=== PATIENT | female | born 1935 | race Caucasian/White ===

== ENCOUNTER 2017-06-21 08:18 | Inpatient (IN) | payer MEDICARE, OTHER ==
[~2017-06-21] VITALS: Ht 160 cm; Wt 63.0 kg
[~2017-06-21 08:18] MED LIST: BACTRIM DS TAB1 EACH PO; CALCIUM 600 +1 EAC1 PO; CARAFATE 1 GM TA1 G1 PO; CARAFATE1 GM/10 ML PO; CIPROFLOXACIN500 M1; COZAAR 25 MG TA25 M1 PO; COZAAR 50 MG TA50 M2 PO; FLAGYL500 MG PO; HYDROCODON-ACE1 EAC8 PO; HYDROCODON-ACE1 EACH PO; IMITREX; IMITREX 25 MG T25 M1 PO; INDERAL LA120 M1 PO; INDERAL LA120 MG; INDERAL LA160 M1 PO; LISINOPRIL5 MG PO; MULTIVITAMINS1 EAC7 PO; NEXIUM; NEXIUM20 MG PO; NORCO 5-325 TA1 EAC1 PO; NORCO 5-325 TA1 EACH PO; NORVASC5 MG PO; OMEPRAZOLE 20 M20 M1 PO; PROPRANOLOL 1010 MG PO; TOPROL XL25 MG PO; TRAMADOL 50 MG50 MG PO; VALIUM5 MG PO; VERAPAMIL E.R240 M1 PO; VERAPAMIL ER120 MG; VERAPAMIL ER240 M1 PO; VITAMIN D1000 UNI1 PO; VITAMIN D400 UNI1; VITAMIN E400 UNIT PO; VOLTAREN GEL 1100 G2 TOP; ZOFRAN4 MG PO
[2017-06-21 08:26] VITALS: BP 136/77
[2017-06-21 08:53] LABS: HEMATOCRIT 42.7 % (37.0-47.0); HEMOGLOBIN 14.7 gm/dL (12.0-15.0); MCH 31.4 pg (26.0-34.0); MCHC 34.5 g/dL (28.0-37.0); MPV 9.3 fl. (7.2-11.1); NUCLEATED RBCS 0 /100WBC; PLATELET COUNT* 145 thou/uL (150-400); RBC 4.69 mil/uL (4.20-5.00); RDW-CV 13.2 % (10.5-14.5); WBC 14.6 thou/uL (4.0-11.0)
[2017-06-21 08:56] LABS: ANION GAP 9 mmol/L (7-16); BUN 17 mg/dL (7-18); CALCIUM 8.2 mg/dL (8.5-10.1); CHLORIDE 95 mmol/L (98-107); CO2 27 mmol/L (21-32); GLUCOSE 109 mg/dL (70-99); POTASSIUM 3.3 mmol/L (3.5-5.1); SODIUM 131 mmol/L (136-145)
[2017-06-21 08:56] LABS: INFLUENZA A ANTIGEN None Detected (None Detect); INFLUENZA B ANTIGEN None Detected (None Detect)
[2017-06-21 09:02] LABS: ALBUMIN 2.9 g/dL (3.4-5.0); ALKALINE PHOSPHATASE 65 U/L (46-116); APTT 28.9 Seconds (25.0-31.3); INR 1.3; LIPASE 127 U/L (73-393); PROTIME 12.2 Seconds (9.20-11.50); SGOT 33 U/L (15-37); SGPT 44 U/L (30-65); TOTAL PROTEIN 7.3 g/dL (6.4-8.2); TROPONIN-I LEVEL <0.06 ng/mL (<0.06)
[2017-06-21 09:13] LABS: ABSOLUTE LYMPHOCYTES 0.7 thou/uL (0.8-5.3); ABSOLUTE MONOCYTES 2.2 thou/uL (0.0-1.2); ABSOLUTE NEUTROPHILS 11.7 thou/uL (1.6-8.1); PLATELET ESTIMATE DECREASED
[2017-06-21 09:18] LABS: URINE BILIRUBIN NEGATIVE (Negative); URINE BLOOD TRACE (Negative); URINE CLARITY SL CLOUDY; URINE COLOR YELLOW; URINE GLUCOSE-RANDOM NEGATIVE (Negative); URINE KETONES 2+ (Negative); URINE LEUKOCYTES-REFLEX 1+ (Negative); URINE PROTEIN 1+ (Negative)
[2017-06-21 09:19] LABS: URINE NITRITE-REFLEX POSITIVE (Negative)
[2017-06-21 09:24] LABS: BACTERIA-REFLEX >30 Many /HPF (None Seen); SQUAMOUS 4-10 Moderate /LPF (0-3)
[2017-06-21 09:25] LABS: CASTS None Seen /LPF (None Seen); CRYSTALS None Seen /LPF (None Seen); URINE RBC 0-2 Rare /HPF (0-2)
--- NOTE | 2017-06-21 09:38 | NUR ---
LAB RETRIEVING BLOOD CULTURES BEFORE ANTIBIOTICS ARE STARTED.
--- NOTE | 2017-06-21 11:15 | NUR ---
CALLED PHARMACY AT [facility] IN [place] TO RETRIEVE UPDATED MEDICATION LIST FOR PATIENT DUE TO PATIENT NOT KNOWING AN UPDATED LIST.
[2017-06-21 11:35] VITALS: BP 123/72
[2017-06-21 12:00] VITALS: BP 136/76
[2017-06-21 16:50] VITALS: BP 120/66
--- NOTE | 2017-06-21 16:50 | NUR ---
PATIENT ADM TO FLOOR, ON UNIT AT 1150, ORIENTED TO ROOM, BELONGIGNS WITHIN REACH, CALL LIGHT AT BEDSIDE, INSTRUCTED TO CALL. PATIENT A&OX4, DROWSY, LETHARGIC. ON ROOM AIR, FINGERS HAVE POOR CIRCULATION USING FEET FOR SPO2 READING. UP WITH STAND BY ASSISTX1, STEADY SLOW GAIT. IV RIGHT AC FLUIDS INFUSSING. NO C/O PAIN. NO OTHER CONCERNS AT THIS TIME. APPROPRAITE AND COOPORATIVE WITH CARE.
[2017-06-21 17:10] LABS: CALCIUM 8.2 mg/dL (8.5-10.1); CREATININE 0.9 mg/dL (0.6-1.3); MAGNESIUM 1.7 mg/dL (1.8-2.4); POTASSIUM 3.3 mmol/L (3.5-5.1)
[2017-06-21 23:31] VITALS: BP 117/66
--- NOTE | 2017-06-22 05:09 | NUR ---
PT UNCOMFORTABLE WITH HEADACHE AND SWEATING AT START OF SHIFT, RESTLESS. +BLOOD CULTURE RESULT REPORTED TO DR MOLINA, NO NEW ORDERS. HYDROCODONE GIVEN WITH GOOD RESULT AND PT ABLE TO SLEEP FAIRLY WELL AFTER THAT. RAC SL, POSITIONAL, NS INFUSING PER PUMP. PO MAG AND K GIVEN AT HS-AM LABS DRAWN.L LIMB ALERT. DENIES N/V. INCONTINENT URINE, BRIEF ON, REGINALD CARE GIVEN. BED ALARM ON FOR SAFETY.ABLE TO USE CALL LITE AND MAKE NEEDS KNOWN.
[2017-06-22 06:08] LABS: HEMATOCRIT 40.5 % (37.0-47.0); HEMOGLOBIN 13.5 gm/dL (12.0-15.0); MCH 31.2 pg (26.0-34.0); MCHC 33.3 g/dL (28.0-37.0); MCV 93.8 fL (80.0-100.0); MPV 9.9 fl. (7.2-11.1); RBC 4.32 mil/uL (4.20-5.00); RDW-CV 13.3 % (10.5-14.5); WBC 11.3 thou/uL (4.0-11.0)
[2017-06-22 06:27] LABS: CALCIUM 8.1 mg/dL (8.5-10.1); MAGNESIUM 1.8 mg/dL (1.8-2.4); POTASSIUM 4.1 mmol/L (3.5-5.1)
[2017-06-22 08:00] VITALS: BP 125/64
--- NOTE | 2017-06-22 10:58 | NUR ---
CM SPOKE TO THE PATIENT TO DISCUSS HOME SITUATION, DISCHARGE PLANNING, AND TO INFORM OF THE ROLE OF CM. PATIENT ALERT, ORIENTED, AND INDEPENDENT WITH ADL'S. PATIENT ABLE TO PERFORM HOME SERVICE DIRECTOR AND DRIVES. PATIENT RESIDES AT HOME WITH . PATIENT OWNS 0 DME. PATIENT HAS NO HX OF HH OR SNF, AND PLANS TO RETURN HOME AT D/C. CM WILL REMAIN AVAILABLE TO ASSIST AND FOLLOW NEEDED.
[2017-06-22 16:00] VITALS: BP 131/48
--- NOTE | 2017-06-22 18:02 | EKG ---
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 : 1935 Requested By: Kei Agudelo Order Number: [id number] MD: Desmond Zaldivar Measurements Intervals [place] Rate: 67 P: 25 [place]: 186 QRS: -47 QRSD: 98 T: 65 QT: 415 QTc: 438 Interpretive Statements Sinus rhythm Atrial premature complexes LAD, consider left anterior fascicular block Compared to ECG 08/22/2014 09:31:41 Atrial premature complex(es) now present Sinus bradycardia no longer present T-wave abnormality no longer present Electronically Signed On 06-22-2017 18:01:48 CDT by Desmond Zaldivar [email or web address] <ELECTRONICALLY SIGNED> By: Desmond Zaldivar MD, [facility] 06/22/17 1801 0843 0843 Desmond Zaldivar MD, [facility] /EPI
--- NOTE | 2017-06-22 18:30 | NUR ---
PT RESTING IN BED THROUGHOUT SHIFT. UP TO BR WITH STEADY GAIT AND SB ASSIST. INCONTINENT OF URINE. PT REPORTS OCASSIONAL FLANK PAIN CONTROLLED WITH MEDS. IVF INFUSING. TOLERATING PO WELL
[2017-06-22 23:52] VITALS: BP 130/70
[2017-06-23 05:01] LABS: HEMATOCRIT 41.9 % (37.0-47.0); HEMOGLOBIN 13.7 gm/dL (12.0-15.0); MCH 30.9 pg (26.0-34.0); MCHC 32.7 g/dL (28.0-37.0); MCV 94.5 fL (80.0-100.0); MPV 9.8 fl. (7.2-11.1); RBC 4.43 mil/uL (4.20-5.00); RDW-CV 13.2 % (10.5-14.5); WBC 9.9 thou/uL (4.0-11.0)
[2017-06-23 05:31] LABS: CREATININE 0.9 mg/dL (0.6-1.3); MAGNESIUM 1.8 mg/dL (1.8-2.4); POTASSIUM 3.7 mmol/L (3.5-5.1)
--- NOTE | 2017-06-23 06:22 | NUR ---
PT STATES SHE FEELS BETTER. SLEPT WELL OVERNIGHT. UP WITH SBA TO AMBULATE TO BR TO VOID, INCONTINENT URINE IN BRIEF ALSO. RAC IVF INFUSING PER PUMP. HYDROCODONE GIVEN AT HS FOR CO BACK PAIN WITH GOOD RESULT. AM LABS DRAWN. BED ALARM ON FOR SAFETY. ZOFRAN GIVEN FOR CO NAUSEA THIS MORNING WITHOUT EMESIS. ABLE TO USE CALL LITE AND MAKE NEEDS KNOWN.
[2017-06-23 08:15] VITALS: BP 141/41
[2017-06-23 16:26] VITALS: BP 143/67
--- NOTE | 2017-06-23 19:46 | NUR ---
PATIENT A/O X 4 THIS SHIFT. PATIENT MEDICATED FOR BACK PAIN AND HEADACHE WITH RELIEF. IV FLUIDS AND ANTIBIOTICS INFUSED ORDERED. UP WITH ASSIST TO BATHROOM WITH STAND BY ASSIST. URINE CULTURE RESULTS NOTED, SHOWING E COLI. TOLERATING DIET. PATIENT HOPEFUL TO BE DISCHARGED SOON. HOURLY ROUNDING COMPLETED. CALL LIGHT WITHIN REACH. WILL CONTINUE WITH PLAN OF CARE.
[2017-06-23 22:22] VITALS: BP 156/83
[2017-06-24 05:02] LABS: HEMATOCRIT 38.2 % (37.0-47.0); HEMOGLOBIN 13.4 gm/dL (12.0-15.0); MCH 31.4 pg (26.0-34.0); MCHC 34.9 g/dL (28.0-37.0); MPV 9.7 fl. (7.2-11.1); RBC 4.25 mil/uL (4.20-5.00); RDW-CV 13.2 % (10.5-14.5); WBC 7.7 thou/uL (4.0-11.0)
[2017-06-24 05:35] LABS: ALBUMIN 2.3 g/dL (3.4-5.0); CREATININE 0.8 mg/dL (0.6-1.3); TOTAL BILIRUBIN 0.7 mg/dL (<0.1-1.0); TOTAL PROTEIN 6.6 g/dL (6.4-8.2)
[2017-06-24 05:44] LABS: POTASSIUM 3.3 mmol/L (3.5-5.1)
[2017-06-24 08:05] VITALS: BP 147/69
--- NOTE | 2017-06-24 10:41 | CON ---
[address] [address] CONSULTATION Name: TAVIA AMADOR Room: [address] IN [facility]#: [id number] Admission: 06/21/17 Attend Phys: Aroldo Painter, Discharge: Date of : 37 Report #: [id number] THIS REPORT FOR: //name// CC: Aroldo Luque DATE OF SERVICE: 06/22/2017 REQUESTING PHYSICIAN: Aroldo Painter MD REASON FOR CONSULTATION: Acute pyelonephritis and question regarding possibility of renal infarction. HISTORY OF PRESENT ILLNESS: The patient is a very pleasant 81-year-old white female admitted to the hospital with the complaints of nausea, vomiting, not feeling well and having some by left-sided flank pain. She did have also some diarrhea when she came in, her urine was positive for ketones, nitrites, leukocyte esterase, many white blood cells, bacteria. She had a urine culture and blood culture done, reports are pending. Her white count and blood was 14.6 thousand with 80% segs in differential of white count. Her serum creatinine was normal at 1.0. Serum sodium was 131, today serum sodium 136, creatinine is still 1.0. She was checked for influenza and that was negative. PAST MEDICAL HISTORY: Significant for hypertension, history of metatarsal fracture, history of fracture of the lateral malleolus. MEDICATIONS: Prior to admission reviewed. She was on losartan, amlodipine, propranolol, tramadol and Nexium. FAMILY HISTORY: Noncontributory to this 81-year-old lady. SOCIAL HISTORY: There is no tobacco or alcohol abuse. She never smoked. PAST SURGICAL HISTORY: Include left mastectomy in 2001 because of breast cancer, placement of pacemaker for urinary incontinence and history of tonsillectomy and appendectomy. REVIEW OF SYSTEMS: Positive for not feeling well, having some fever, chills, having some nausea, and left-sided flank pain. Denies changes in visual or hearing acuity. PHYSICAL EXAMINATION: GENERAL: Awake, alert, oriented, no acute distress. VITAL SIGNS: Blood pressure 125/64, heart rate 77, afebrile. HEENT: [place] [address] CONSULTATION Name: TAVIA AMADOR Deirdre Room: [address]#: [id number] Admission: 06/21/17 Attend Phys: Aroldo Painter, Discharge: Date of : 37 Report #: [id number] NECK: Supple. LUNGS: Decreased air movement. CARDIOVASCULAR: Regular rate. ABDOMEN: Soft. EXTREMITIES: No edema. LABORATORY DATA: She had abdominal and pelvic CT scan done with contrast that revealed some relatively low density involving the lateral aspect of the mid superior pole of the right kidney with perinephric fat stranding suggesting edema/inflammation most likely represents a bacterial nephritis. There was a question regarding possibility of some infarction of the kidneys, but it is less likely. ASSESSMENT: An 81-year-old female admitted with symptoms and findings suggestive of pyelonephritis. At this moment renal infection is less likely. I would not recommend any anticoagulation or any further workup for that. I will continue with antibiotics and fluids for now and assess her condition on daily basis. Continue medications for her blood pressure. The patient had a contrast, so we have to be monitoring her renal function very closely. Thank you very much for asking my opinion. <ELECTRONICALLY SIGNED> By: Isidro Lott MD 06/24/17 1041 1043 [id number] Lott MD /[facility]
[2017-06-24 16:51] VITALS: BP 131/83
--- NOTE | 2017-06-24 17:30 | NUR ---
PT C/O ALL OVER BODY PAIN, GIVEN PAIN MED ORDERED, RELIEF REPORTED ON REASSESSMENT. PT ENCOURAGED TO GET OOB TO CHAIR AND PT REFUSED ON SEVERAL ATTEMPTS. PT UP TO BATHROOM WITH SBA. PT ABLE TO MAKE NEEDS KNOWN, CALL LIGHT IN REACH
[2017-06-24 21:00] VITALS: BP 146/76
--- NOTE | 2017-06-25 07:28 | NUR ---
PT SLEPT MOST OF SHIFT. ASSESSMENT DOCUMENTED. MEDS GIVEN PER E-MAR. IV PATENT. PT REPOSITIONED SELF IN BED. NO CONCERNS AT THIS TIME, WILL CONTINUE WITH PLAN OF CARE.
[2017-06-25 08:25] VITALS: BP 151/78
--- NOTE | 2017-06-25 11:11 | NUR ---
PT'S MEDICAL CHARGE REVIEWED AND STATUS DISCUSSED W/ NSG. PT'S SON PRESENT IN ROOM. PT DEMO INDEP BED MOB, INDEP TRANSFERS, INDEP GAIT W/O DME SUPPORT. PT ABLE TO ASCEND/DESCEND 3 STEPS W/ TWO RAILS W/ MOD INDEP ( HOME HAS 3 KEON W/ 2 RAILS). PT INDICATES ACCESS TO CANES AND WALKERS IN HOME. SON INDICATES HE WILL BE IN THE HOME THIS DATE AND HAS SISTER ARRIVING TO STAY W/ PT NEXT WEEK. RECOMMENDED PT USE DME SUPPORT UPON RETURN TO HOME DUE TO MILD GAIT DEVIATION FROM GAIT PATH W/O DME SUPPORT. NO FURTHER ACUTE PT SERVICES ARE INDICATED.
--- NOTE | 2017-06-25 11:36 | NUR ---
ATTEMPT MADE TO SEE PATIENT. PT STATING THAT SHE IS FEELING FINE AND IS DISCHARGING AT 1330. PT STATING NO NEED FOR OCCUPATIONAL THERAPY. WILL D/C FROM OT [facility].
[2017-06-25 12:08] VITALS: BP 151/78
[2017-06-25] MEDS ORDERED: CIPRO500 M1 PO (12:14)
--- NOTE | 2017-06-25 13:45 | NUR ---
PT DC'D HOME WITH ALL BELONGINGS. IV REMOVED INTACT BEFORE DISMISSAL. PT ACKNOWLEDGED DISCHARGE INSTRUCTIONS AND SENT WITH RX.
== END 2017-06-25 13:15 | disposition home or self-care (01) | DRG 871 ==
LOC: M.ERS 08:18 → M.3W 10:46 → M.TBA-ER 10:46 → M.3W 11:46
PROVIDERS: Family Medicine; Internal Medicine; Internal Medicine Nephrology; ADMIT Family Medicine
DX: A41.51 Sepsis due to Escherichia coli [E. coli] (principal); G92 Toxic encephalopathy; N10 Acute pyelonephritis; N17.9 Acute kidney failure, unspecified; E87.6 Hypokalemia; E86.0 Dehydration; K21.9 Gastro-esophageal reflux disease without esophagitis; I10 Essential (primary) hypertension; Z90.12 Acquired absence of left breast and nipple; Z95.0 Presence of cardiac pacemaker; Z90.710 Acquired absence of both cervix and uterus; Z90.49 Acquired absence of other specified parts of digestive tract; Z88.8 Allergy status to other drugs, medicaments and biological substances; Z87.81 Personal history of (healed) traumatic fracture; Z85.3 Personal history of malignant neoplasm of breast; Z79.899 Other long term (current) drug therapy

== ENCOUNTER 2017-07-22 19:29 | Emergency (ER) | payer MEDICARE, OTHER ==
[~2017-07-22] VITALS: Ht 157.5 cm; Wt 63.5 kg
[~2017-07-22 19:29] MED LIST changes: +CIPRO500 M1 PO
[2017-07-22] MEDS ORDERED: HYDROCODONE-AP1 EAC6 PO (20:53)
[2017-07-22 21:04] VITALS: BP 145/74
== END 2017-07-22 21:06 | disposition home or self-care (01) ==
LOC: M.ERS 19:29
DX: S29.8XXA Other specified injuries of thorax, initial encounter (principal); K21.9 Gastro-esophageal reflux disease without esophagitis; I10 Essential (primary) hypertension; Z85.3 Personal history of malignant neoplasm of breast; Z90.710 Acquired absence of both cervix and uterus; Z90.49 Acquired absence of other specified parts of digestive tract; Z90.89 Acquired absence of other organs; Z88.8 Allergy status to other drugs, medicaments and biological substances; Z88.1 Allergy status to other antibiotic agents; W06.XXXA Fall from bed, initial encounter; Y93.89 Activity, other specified; Y92.89 Other specified places as the place of occurrence of the external cause; Y99.8 Other external cause status

== ENCOUNTER 2017-09-16 15:40 | Emergency (ER) | payer MEDICARE, OTHER ==
[~2017-09-16] VITALS: Ht 157.5 cm; Wt 61.2 kg
[~2017-09-16 15:40] MED LIST changes: +HYDROCODONE-AP1 EAC6 PO
[2017-09-16] MEDS ORDERED: NITROFURANTOIN100 MG PO (15:55)
[2017-09-16 16:11] VITALS: BP 175/91
--- NOTE | 2017-09-17 11:41 | EKG ---
[place] [address] ELECTROCARDIOGRAM REPORT Name: TAVIA AMADOR Room: [facility]#: [id number] Admission: 09/16/17 Attend Phys: Discharge: 09/16/17 Date of : 37 Report #: [id number] THIS REPORT FOR: //name// [facility] ED Test Date: 2017-09-16 Test Time: 15:48:02 Pat Name: TAVIA AMADOR Department: Room: Gender: F Part Time: MER : 1935 Requested By: Kei Agudelo Order Number: [id number] MD: Kentrell Marques Measurements Intervals [place] Rate: 60 P: 33 SD: 217 QRS: -42 QRSD: 98 T: 55 QT: 454 QTc: 454 Interpretive Statements Sinus rhythm Borderline prolonged SD interval Left axis deviation RSR' in V1 or V2, probably normal variant Compared to ECG 06/21/2017 08:43:11 Left-axis deviation now present RSR' in V1 or V2 now present Atrial premature complex(es) no longer present Electronically Signed On 09-17-2017 11:41:02 CDT by Kentrell Marques [email or web address] <ELECTRONICALLY SIGNED> By: Kentrell Marques MD, [facility] 09/17/17 1141 1548 1548 Kentrell Marques MD, FAC /EPI
== END 2017-09-16 16:11 | disposition home or self-care (01) ==
LOC: M.ERS 15:40
DX: I10 Essential (primary) hypertension (principal); K21.9 Gastro-esophageal reflux disease without esophagitis; Z90.710 Acquired absence of both cervix and uterus; Z90.49 Acquired absence of other specified parts of digestive tract; Z85.3 Personal history of malignant neoplasm of breast; Z88.8 Allergy status to other drugs, medicaments and biological substances

== ENCOUNTER 2017-10-11 16:30 | Inpatient (IN) | payer MEDICARE, OTHER ==
[~2017-10-11] VITALS: Ht 157.5 cm; Wt 58.1 kg
[~2017-10-11 16:30] MED LIST changes: +NITROFURANTOIN100 MG PO
[2017-10-11] MEDS ORDERED: TRAMADOL 50 MG50 MG PO (16:32)
[2017-10-11] MEDS ORDERED: IBUPROFEN 600600 M1 PO (16:32)
[2017-10-11] MEDS ORDERED: OMEPRAZOLE20 M1 PO (16:33)
[2017-10-11] MEDS ORDERED: PROPRANOLOL 1010 MG PO (16:33)
[2017-10-11] MEDS ORDERED: AMOXICILLIN 50500 MG PO (16:34)
[2017-10-11] MEDS ORDERED: COZAAR 25 MG TA25 M1 PO (16:34)
[2017-10-11 16:35] VITALS: BP 167/100
[2017-10-11 16:45] LABS: ABSOLUTE EOSINOPHILS 0.2 thou/uL (0.0-0.7); ABSOLUTE LYMPHOCYTES 1.7 thou/uL (0.8-5.3); ABSOLUTE NEUTROPHILS 4.8 thou/uL (1.6-8.1); BASOPHILS 0.5 %; EOSINOPHILS 3.1 %; HEMATOCRIT 42.2 % (37.0-47.0); LYMPHOCYTES 22.2 %; MCH 30.3 pg (26.0-34.0); MCHC 33.1 g/dL (28.0-37.0); MCV 91.3 fL (80.0-100.0); MONOCYTES 13.2 %; MPV 9.6 fl. (7.2-11.1); NUCLEATED RBCS 0 /100WBC; PLATELET COUNT* 149 thou/uL (150-400); RBC 4.63 mil/uL (4.20-5.00); RDW-CV 14.8 % (10.5-14.5); WBC 7.8 thou/uL (4.0-11.0)
[2017-10-11 16:56] LABS: ANION GAP 7 mmol/L (7-16); BUN 12 mg/dL (7-18); CALCIUM 8.8 mg/dL (8.5-10.1); CHLORIDE 101 mmol/L (98-107); CO2 29 mmol/L (21-32); CREATININE 0.9 mg/dL (0.6-1.3); GLUCOSE 106 mg/dL (70-99); POTASSIUM 3.5 mmol/L (3.5-5.1); SODIUM 137 mmol/L (136-145)
[2017-10-11 16:57] LABS: APTT 29.1 Seconds (25.0-31.3); INR 1.3; PROTIME 12.2 Seconds (9.20-11.50)
[2017-10-11 17:02] LABS: ALKALINE PHOSPHATASE 68 U/L (46-116); SGOT 37 U/L (15-37); SGPT 34 U/L (30-65); TOTAL BILIRUBIN 0.5 mg/dL (<0.1-1.0); TOTAL PROTEIN 7.7 g/dL (6.4-8.2); TROPONIN-I LEVEL <0.06 ng/mL (<0.06)
[2017-10-11 18:18] VITALS: BP 142/97
[2017-10-11 18:57] VITALS: BP 127/77
[2017-10-12] VITALS (12 sets, daily range): BP systolic 99–153; BP diastolic 78–99
[2017-10-12 05:00] LABS: URINE BLOOD 3+ (Negative); URINE CLARITY CLEAR; URINE COLOR DARK YELLOW; URINE GLUCOSE-RANDOM NEGATIVE (Negative); URINE KETONES TRACE (Negative); URINE LEUKOCYTES-REFLEX 1+ (Negative); URINE NITRITE-REFLEX NEGATIVE (Negative); URINE PROTEIN 1+ (Negative); URINE SPECIFIC GRAVITY >= 1.030 (1.005-1.030)
[2017-10-12 05:06] LABS: URINE BILIRUBIN 2+ (Negative)
[2017-10-12 05:11] LABS: ICTOTEST (BILI CONFIRMATORY) Negative (Negative)
[2017-10-12 05:18] LABS: BACTERIA-REFLEX >30 Many /HPF (None Seen); COARSE GRANULAR CASTS 0-3 Few /LPF (None Seen); CRYSTALS None Seen /LPF (None Seen); FINE GRANULAR CASTS 0-3 Few /LPF (None Seen); HYALINE CASTS 0-3 Few /LPF (None Seen); MUCUS 4-6 Moderate strn/LPF (None Seen); SQUAMOUS 0-3 Few /LPF (0-3); TRANSITIONAL EPITHEL CELL 0-3 Few /LPF (None Seen); URINE WBC-REFLEX >25 Many /HPF (0-5); WBC CLUMPS Few (None Seen)
[2017-10-12 07:12] LABS: HEMATOCRIT 48.7 % (37.0-47.0); HEMOGLOBIN 15.4 gm/dL (12.0-15.0); MCHC 31.7 g/dL (28.0-37.0); MCV 94.7 fL (80.0-100.0); MPV 10.3 fl. (7.2-11.1); RBC 5.14 mil/uL (4.20-5.00); RDW-CV 15.5 % (10.5-14.5); WBC 17.3 thou/uL (4.0-11.0)
[2017-10-12 07:47] LABS: CALCIUM 9.2 mg/dL (8.5-10.1); CREATININE 1.7 mg/dL (0.6-1.3)
[2017-10-12 08:49] LABS: BE -8.2 mmol/L (-2 to +3); pH 7.345 (7.340-7.450)
[2017-10-12 08:53] LABS: PO2 430.4 mmHg (75.0-100.0)
--- NOTE | 2017-10-12 09:50 | EKG ---
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 : 1935 Requested By: Kei Agudelo Order Number: [id number] MD: Ty Nj Measurements Intervals [place] Rate: 76 P: 61 VA: 188 QRS: 74 QRSD: 109 T: 15 QT: 451 QTc: 508 Interpretive Statements Sinus rhythm Supraventricular bigeminy RSR' in V1 or V2, right VCD or RVH Compared to ECG 09/16/2017 15:48:02 Atrial premature complex(es) now present Left-axis deviation no longer present Electronically Signed On 10-12-2017 9:50:14 CDT by Ty Nj [email or web address] <ELECTRONICALLY SIGNED> By: Ty Nj MD, FAC 10/12/17 0950 1645 1645 Ty Nj MD, FAC /EPI
--- NOTE | 2017-10-12 09:56 | EKG ---
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
[2017-10-12 14:21] LABS: HEMATOCRIT 50.5 % (37.0-47.0); HEMOGLOBIN 15.6 gm/dL (12.0-15.0); MCH 29.8 pg (26.0-34.0); MCHC 30.8 g/dL (28.0-37.0); MCV 96.9 fL (80.0-100.0); MPV 10.5 fl. (7.2-11.1); NUCLEATED RBCS 0 /100WBC; PLATELET COUNT* 147 thou/uL (150-400); RBC 5.22 mil/uL (4.20-5.00); RDW-CV 16.4 % (10.5-14.5); WBC 20.7 thou/uL (4.0-11.0)
[2017-10-12 14:38] LABS: ALBUMIN 2.4 g/dL (3.4-5.0); CALCIUM 8.4 mg/dL (8.5-10.1); CREATININE 1.8 mg/dL (0.6-1.3); TOTAL BILIRUBIN 1.2 mg/dL (<0.1-1.0); TOTAL PROTEIN 5.9 g/dL (6.4-8.2)
[2017-10-12 14:41] LABS: POTASSIUM 6.4 mmol/L (3.5-5.1)
[2017-10-12 14:55] LABS: ABSOLUTE LYMPHOCYTES 1.2 thou/uL (0.8-5.3); ABSOLUTE NEUTROPHILS 18.4 thou/uL (1.6-8.1)
[2017-10-12 14:57] LABS: ANISOCYTOSIS 3+; PLATELET ESTIMATE DECREASED; POIKILOCYTOSIS 3+
[2017-10-12 17:42] LABS: CALCIUM 8.3 mg/dL (8.5-10.1); CREATININE 1.8 mg/dL (0.6-1.3); POTASSIUM 5.4 mmol/L (3.5-5.1)
[2017-10-13] VITALS (16 sets, daily range): BP systolic 116–159; BP diastolic 66–102
[2017-10-13 07:04] LABS: ABSOLUTE LYMPHOCYTES 1.1 thou/uL (0.8-5.3); ABSOLUTE MONOCYTES 0.6 thou/uL (0.0-1.2); BASOPHILS 0.2 %; HEMATOCRIT 41.5 % (37.0-47.0); LYMPHOCYTES 5.7 %; MCH 29.9 pg (26.0-34.0); MCHC 32.8 g/dL (28.0-37.0); MONOCYTES 3.4 %; MPV 10.3 fl. (7.2-11.1); NUCLEATED RBCS 0 /100WBC; PLATELET COUNT* 80 thou/uL (150-400); POLYS 90.7 %; RBC 4.54 mil/uL (4.20-5.00); RDW-CV 15.1 % (10.5-14.5); WBC 18.8 thou/uL (4.0-11.0)
[2017-10-13 07:05] LABS: HEMOGLOBIN 13.6 gm/dL (12.0-15.0); MCV 91.3 fL (80.0-100.0)
[2017-10-13 07:11] LABS: CALCIUM 7.1 mg/dL (8.5-10.1); CREATININE 1.8 mg/dL (0.6-1.3)
[2017-10-13 07:15] LABS: BE -0.1 mmol/L (-2 to +3); HCO3 23.6 mmol/L (22.0-26.0); PCO2 35.4 mmHg (35.0-45.0); pH 7.441 (7.340-7.450)
[2017-10-13 07:16] LABS: POTASSIUM 3.1 mmol/L (3.5-5.1)
--- NOTE | 2017-10-13 08:15 | CON ---
[address] [address] CONSULTATION Name: TAVIA AMADOR Room: [address] IN [facility]#: [id number] Admission: 10/11/17 Attend Phys: Lauren Childers Discharge: Date of : 37 Report #: [id number] THIS REPORT FOR: //name// CC: Ines Luque DATE OF SERVICE: 10/11/2017 ATTENDING PHYSICIAN: Dr. Anderson. REASON FOR EVALUATION: Complicated urinary tract infection. HISTORY OF PRESENT ILLNESS: Chart reviewed, patient examined. This is an 81-year-old with fairly extensive medical history. It is not clear of the extent if there are any primary neurological issues, who apparently was startled, tripped and reported left hip pain, question of a syncopal episode as well. On evaluation, was found to have a partially impacted nondisplaced left subcapital femoral neck fracture, minimally displaced fracture involving the left superior pubic ramus. In addition to that, was found to have moderate to marked pyuria on screening urinalysis. There is a reported history of recent urinary tract infection, although there are no details. She is quite encephalopathic at this point. She apparently was transferred to the Intensive Care Unit, was felt to have altered mental status, some respiratory difficulty. Did require BiPAP for a period of time, although now she is on 4 liters. There is some concern that may have been secondary to adverse drug effects from narcotic analgesics. With chest x-ray and cardiomegaly is not particular evidence of acute issues, although has chronic scarring. Lactic acid did peak at 6.3; however, more recent repeat was 1.1. Empirically she was started on piperacillin and tazobactam. ALLERGIES: MEPERIDINE, CELECOXIB. CURRENT MEDICATIONS: Include enoxaparin, Zosyn, pantoprazole, hydralazine, acetaminophen, ondansetron. PAST MEDICAL HISTORY: Gastroesophageal reflux, hypertension, history of breast cancer in 2001 with left mastectomy, pacemaker, urinary incontinence, previous hysterectomy, appendectomy, tonsillectomy. SOCIAL HISTORY: Nonsmoker, no ethanol. FAMILY HISTORY: Noncontributory. REVIEW OF SYSTEMS: As above. PHYSICAL EXAMINATION: [place] [address] CONSULTATION Name: TAVIA AMADOR Room: [address]#: [id number] Admission: 10/11/17 Attend Phys: Lauren Childers Discharge: Date of : 37 Report #: [id number] GENERAL: She is moderately encephalopathic. She appears to be at least mildly uncomfortable with somewhat chronically ill, undernourished appearing. VITAL SIGNS: Temperature 97.7, pulse , respirations 21, blood pressure 153/99. SKIN: Warm, dry, no rashes. HEENT: Unremarkable. NECK: Supple. LUNGS: Diminished breath sounds, scattered crackles. HEART: Regular. I do not appreciate any murmur. ABDOMEN: Soft, nontender. EXTREMITIES: Limbs quite cool to the touch. There are some changes, possibly Raynaud's. GENITOURINARY AND RECTAL: Deferred. LABORATORY DATA: Lactic acid peaked at 6.3, repeat was 1.1. Most recent ABGs, pH 7.345, pCO2 of 30.0, pO2 of 430.4. FiO2 was 100%. Electrolytes: Sodium 138, potassium 5, chloride 104, bicarbonate is 18, anion gap of 16, BUN and creatinine 18 and 1.7. CBC: White count of 17.3, H and H 15.4 and 48.7, platelets of 160. Chest x-ray shows cardiomegaly, some chronic changes. Urinalysis greater than 25 white cells, greater than 30 bacteria. Liver functions unrevealing. Albumin 3, total protein 7.7. ASSESSMENT: Complicated urinary tract infection. This may well have preceded the hip fracture, sequence of events, does not sound like no significant fevers associated with it. Does have leukocytosis, which could be multifactorial. I do think it is reasonable to continue empiric therapy. Piperacillin and tazobactam is reasonable. It is not clear if treated as an outpatient, responded to the therapy. Urine and blood cultures are pending. We will wait on those results. Monitor expectantly for evidence of nosocomial related infectious complications. <ELECTRONICALLY SIGNED> By: Haile Mayo MD 10/13/17 0815 1134 1901Haile Mayo MD /nt
--- NOTE | 2017-10-13 08:52 | CON ---
[address] [address] CONSULTATION Name: TAVIA AMADOR Room: [address] IN .R.#: [id number] Admission: 10/11/17 Attend Phys: Lauren Childers Discharge: Date of : 37 Report #: [id number] THIS REPORT FOR: //name// CC: Holden Luque DATE OF SERVICE: 10/12/2017 PULMONARY CONSULTATION ATTENDING PHYSICIAN: Ines Anderson MD LOCATION: The patient is located in room ICU bed #6. INDICATION FOR CONSULTATION: Hypoxic respiratory failure, scleroderma and fibrosis. HISTORY OF PRESENT ILLNESS: The patient is an 81-year-old female, nonsmoker, who sustained a fall at home yesterday afternoon. She was standing on her left hip. She was in the kitchen and tripped over and she had a hip fracture and had pain there. She was seen on tele room and then she was transferred down to the ICU on BiPAP. She is lethargic. She was noted to be in urosepsis, was given some IV fluids. She did not have to be on pressors. She denies any fever, chills or sweats. No cough or sputum. She is chronically short of breath at home, but is not on any oxygen. She has had problems with uterine prolapse and had been working with the urologist on an outpatient. She cannot tell me what urologist she is working with. I was asked to see her and clear her for surgery. CURRENT MEDICAL PROBLEMS: Closed left hip fracture femoral head, dehydration, dizziness, previous left ankle fracture, metatarsal fracture. She has had pelvic fractures in the past, she has had symptomatic bradycardia, uncontrolled hypertension with Raynaud's phenomenon, possible early scleroderma. ALLERGIES: INCLUDE MEPERIDINE FROM DEMEROL AND CELECOXIB, CELEBREX GIVE HER RASH AND DEMEROL MADE HER AGITATED. OUTPATIENT MEDICATIONS: Included propranolol 120 mg daily, she is on nitrofurantoin 100 mg b.i.d., ibuprofen 600 mg every 6-8 hours, tramadol 50 mg q. 6 hours, omeprazole 20 mg b.i.d., amoxicillin 500 mg capsule every 12 hours, losartan 100 mg daily, Nexium 20 mg b.i.d., losartan 100 mg daily. Also has a history of breast CA in 2001 with a left mastectomy. She had a pacemaker for urinary incontinence implanted in right buttocks[place] [address] CONSULTATION Name: TAVIA AMADOR Room: [address] IN [facility]#: [id number] Admission: 10/11/17 Attend Phys: Lauren Childers Discharge: Date of : 37 Report #: [id number] this device 12 years and it has been turned off. She has also had a hysterectomy and tonsillectomy in the past, spinal meningitis when she was 7 years old, and she has had multiple compression fractures from October 2010. No history of recurrent disease from her breast cancer that I am aware of. I do not know whether she had any adjuvant radiation or chemotherapy. FAMILY HISTORY: Negative for premature cardiopulmonary disease. Negative for breast cancer and no history of lung cancer or COPD. SOCIAL HISTORY: The patient lives at home, I am not sure if she lives with anyone else. She is a nonsmoker, nondrinker, does not get up and walk around very much. REVIEW OF SYSTEMS: A 14-point review of systems reviewed and negative except for pertinent positives noted in HPI. PHYSICAL EXAMINATION: GENERAL: An 81-year-old female who only answer questions yes and no and will give some appropriate answers. She is somewhat lethargic and we are getting her off the BiPAP. VITAL SIGNS: Currently, blood pressure is 150/80, her heart rate was 88-96, respirations were 20-24, slightly labored and she has been afebrile. Highest temperature was 36.7. She is 5 feet 3 inches tall, weighs 58 kilograms or 128 pounds, BMI is 23. HEENT: Unremarkable. Mucous membranes are dry. Her mouth is somewhat small. Limited range of motion. NECK: Supple, without nodes. No increase in jugular venous pressure. CHEST: Shows a few bibasilar crackles with occasional rhonchi. No wheeze noted. CARDIOVASCULAR: Regular rate and rhythm without murmur, gallop or rub. Heart rate is in the high 80s to low 90s. No S3 is noted. ABDOMEN: Soft, without masses or megaly. EXTREMITIES: No cyanosis, clubbing or edema. I did not move her left leg because of the fracture. She has no tenderness. Peripheral pulses 1-2+. NEUROLOGIC: Waves with her hands, seemed to be intact. LABORATORY DATA: Her initial white count was 7800, it was 17,000; now it is 20,000; hemoglobin 15, platelets 147,000; mild left shift differential with 18,000 absolute neutrophils. Sodium is 139, potassium is 6.4, BUN is 20, creatinine is 1.8. Previous creatinine was 2.2, bicarbonate is 13 and anion gap is 19, glucose is 218. AST and ALT are both elevated 2-3 times normal. Albumin is 2.4. Total bilirubin is 1.2. ABGs on the BiPAP at 8:40 this morning on 100% 26/11 with a backup rate of 14 shows a pO2 of 430, pH 7.35, pCO2 is 30, bicarbonate 16, sats 98%. Chest x-ray shows some upper and lower lobe interstitial infiltrates and possible fibrosis. She has never had a CAT scan of her chest that I can see. No PFTs are noted. This is [place] [address] CONSULTATION Name: PERRYTAVIA Deirdre Room: [address] IN [facility]#: [id number] Admission: 10/11/17 Attend Phys: Lauren Childers Discharge: Date of : 37 Report #: [id number] noted. It should be noted that the patient has some Raynaud's phenomenon of her hands and of her toes on physical exam, she also has nail latvian on both nails and toes also. IMPRESSION: 1. Left hip fracture, may need pinning. 2. Lactic acidosis. 3. Possible aspiration pneumonitis. 4. 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 5. Urinary tract infection with sepsis syndrome. 6. Acute kidney injury with acute renal failure. PLAN: Continue with IV fluids. She is not on pressors at this time. I will give her some sepsis doses of Solu-Cortef, also give her some albuterol aerosol treatments to see if we can help out her lungs. We will try on 6 liters with an end-tidal CO2 monitor, keep her CO2 between 25 and 35. If she gets above 40, we will put her back on the BiPAP with the BiPAP at standby. From pulmonary view, once we get her chest x-ray and blood gas back tomorrow morning, I think tomorrow late morning around 11:00 or noon, we should be able to have her cleared for left hip pinning. If she becomes hypoxic during surgery, she may have to be left on the ventilator hopefully and get her extubated fairly quickly. She may need an arterial line during surgery from anesthesia, so we can check her ABGs. 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 This has been a 36 minutes critical care consult. <ELECTRONICALLY SIGNED> By: Bret Davis MD 10/13/17 0852 1609 [id number] Davis MD /lory
[2017-10-13 08:59] LABS: ALBUMIN 2.1 g/dL (3.4-5.0); DIRECT BILIRUBIN 0.4 mg/dL (<0.1-0.3); TOTAL BILIRUBIN 0.8 mg/dL (<0.1-1.0); TOTAL PROTEIN 5.5 g/dL (6.4-8.2)
[2017-10-13 14:48] LABS: BE 0.9 mmol/L (-2 to +3); HCO3 23.7 mmol/L (22.0-26.0); PCO2 32.9 mmHg (35.0-45.0); PO2 92.7 mmHg (75.0-100.0); pH 7.476 (7.340-7.450)
[2017-10-13 16:54] LABS: BE -0.1 mmol/L (-2 to +3); HCO3 20.7 mmol/L (22.0-26.0); PCO2 24.8 mmHg (35.0-45.0); PO2 63.7 mmHg (75.0-100.0); pH 7.539 (7.340-7.450)
[2017-10-14] VITALS (8 sets, daily range): BP systolic 103–179; BP diastolic 74–108
[2017-10-14 05:22] LABS: ABSOLUTE LYMPHOCYTES 1.3 thou/uL (0.8-5.3); ABSOLUTE MONOCYTES 0.8 thou/uL (0.0-1.2); ABSOLUTE NEUTROPHILS 12.9 thou/uL (1.6-8.1); BASOPHILS 0.2 %; EOSINOPHILS 0.1 %; HEMATOCRIT 37.6 % (37.0-47.0); HEMOGLOBIN 12.4 gm/dL (12.0-15.0); LYMPHOCYTES 8.8 %; MCH 29.8 pg (26.0-34.0); MCV 90.3 fL (80.0-100.0); MONOCYTES 5.4 %; MPV 11.7 fl. (7.2-11.1); NUCLEATED RBCS 1 /100WBC; PLATELET COUNT* 84 thou/uL (150-400); POLYS 85.5 %; RBC 4.17 mil/uL (4.20-5.00); RDW-CV 15.4 % (10.5-14.5); WBC 15.1 thou/uL (4.0-11.0)
[2017-10-14 05:26] LABS: PREALBUMIN 11.6 mg/dL (18.0-35.7)
[2017-10-14 05:51] LABS: ALBUMIN 2.1 g/dL (3.4-5.0); CALCIUM 7.6 mg/dL (8.5-10.1); POTASSIUM 3.7 mmol/L (3.5-5.1); TOTAL PROTEIN 5.7 g/dL (6.4-8.2)
[2017-10-14 08:59] LABS: BE -2.2 mmol/L (-2 to +3); HCO3 19.8 mmol/L (22.0-26.0); PCO2 26.9 mmHg (35.0-45.0); PO2 63.6 mmHg (75.0-100.0); pH 7.485 (7.340-7.450)
[2017-10-14 23:18] LABS: CALCIUM 7.9 mg/dL (8.5-10.1); CREATININE 1.3 mg/dL (0.6-1.3)
--- NOTE | 2017-10-15 09:12 | CON ---
[address] [address] CONSULTATION Name: TAVIA AMADOR Room: [address] IN .R.#: [id number] Admission: 10/11/17 Attend Phys: Lauren Childers Discharge: 10/15/17 Date of : 37 Report #: [id number] THIS REPORT FOR: //name// CC: Ines Luque DATE OF SERVICE: 10/12/2017 CONSULTING PHYSICIAN: Dr. De La Garza. REASON FOR NEPHROLOGY CONSULTATION: Acute kidney injury. CHIEF COMPLAINT: Fall. HISTORY OF PRESENT ILLNESS: This is an 81-year-old female who was admitted yesterday after a fall. This was because of tripping and falling initially, but then the patient also apparently had a syncopal episode. Her creatinine was 0.9 yesterday, but today her creatinine has gone up to 1.7; hence nephrology has been consulted. Overnight, her blood pressures were stable. Yesterday on admission, she was found to have a left femur fracture, then orthopedics has been consulted and they are recommending surgery after she is medically stable. The patient was oriented yesterday, but last night she became very restless and hypoxic and had to be initiated on BiPAP. She is also being treated for UTI. She was also found to have a lactic acid acutely, which acutely went up to 6.3. So she has been transferred to ICU now. She is hemodynamically stable. She is currently on 4 liters of oxygen via nasal cannula and has come off of BiPAP. At home, she takes losartan 100 mg a day as well as ibuprofen, but they were not continued here in the hospital. When she became hypoxic this morning, she was given a dose of Lasix. She is receiving her second bolus of IV fluid currently as a part of sepsis protocol. Urine output 900 mL over the last 24 hours, but has been declining now. She is very drowsy, not able to provide review of systems right now, but she is complaining of being very dry. REVIEW OF SYSTEMS: The patient is very drowsy right now, unable to provide review of systems. She did have a fall at home. She is complaining of her mouth being very dry. ALLERGIES: MEPERIDINE AND CELECOXIB. PAST MEDICAL HISTORY: Includes GERD, hypertension, breast cancer, she has a pacemaker for urinary incontinence. PAST SURGICAL HISTORY: Includes a pacemaker for urinary incontinence, left mastectomy, hysterectomy, appendectomy, tonsillectomy, and spinal surgery. FAMILY HISTORY: [place] [address] CONSULTATION Name: PERRYTAVIA A Room: [address] IN ..#: [id number] Admission: 10/11/17 Attend Phys: Lauren Childers Discharge: 10/15/17 Date of : 37 Report #: [id number] SOCIAL HISTORY: She apparently lives at home. She does not use tobacco right now or use any alcohol or recreational drugs. HOME MEDICATIONS: Include propranolol, nitrofurantoin, ibuprofen, tramadol, omeprazole. amoxicillin, losartan, and Nexium. PHYSICAL EXAMINATION: VITAL SIGNS: Blood pressure is 148/97, respiratory rate 16, pulse rate is 79, temperature 36.9, and pulse ox is hardly record because of her history of Raynaud syndrome and she is on 4 liters via nasal cannula. GENERAL: She is very drowsy right now. She is arousable, then falls right back to sleep. HEAD, EYES, EARS, NOSE AND THROAT: Atraumatic, normocephalic. Mucous membranes are extremely dry. NECK: There is no JVD. CHEST: Clear to auscultation bilaterally. No crackles or wheezing heard. CARDIOVASCULAR: S1, S2 normal. No murmurs heard. ABDOMEN: Soft, nondistended, nontender. Bowel sounds are present. EXTREMITIES: There is no lower extremity edema, symmetrical extremities. NEUROLOGICAL FUNCTION: She is very drowsy right now. SKIN: Very dry and skin turgor is decreased. PSYCHIATRIC: Cannot assess right now because of her mental status. LABS: From this morning, WBC is 17.3, hemoglobin is 15.4, and platelet count is 160. Her sodium level was 138, her potassium was 5.0, CO2 was 18 and creatinine was 1.7 and lactic acid was 6.3 and her other labs were reviewed. IMAGING: Chest x-ray and other CT scans of head and cervical spine were reviewed and hip and pelvic x-rays were reviewed. ASSESSMENT AND PLAN: 1. Acute kidney injury, which is because of dehydration and also the patient was using ARB and nonsteroidal anti-inflammatory drugs at home: I would avoid giving any Lasix right now, she is extremely dry. We will check her renal ultrasound as well as serum immunofixation, serum kappa to lambda light chain ratio. In all likelihood, she is very dehydrated. There is no acute need for dialysis and I would start her on normal saline at 100 mL an hour. Try to keep mean arterial pressure more than 65 and avoid nephrotoxic agents. 2. The patient is septic or sepsis likely because of low tract infection: She has been started on antibiotics per primary team and the blood cultures and urine cultures are pending. 3. Restlessness and shortness of breath: The patient to be anxious at that time and also she could be having respiratory alkalosis because of metabolic acidosis. She is not in fluid overload. I would avoid giving any diuretics and we will give [place] [address] CONSULTATION Name: TAVIA AMADOR Deirdre Room: [address] IN ..#: [id number] Admission: 10/11/17 Attend Phys: Lauren Childers Discharge: 10/15/17 Date of : 37 Report #: [id number] 4. Acute confusion: This is likely because of her urinary tract infection and her being elderly and sundowning. She is on antibiotics as per primary team. We will defer to primary team and continue to follow her. 5. Fall, status post left femur fracture: Care as per orthopedics. Plan is for surgery once she is medically stable. Thank you for this consultation. I will continue to follow along with you. I discussed the patient's plan with the patient's nurse. <ELECTRONICALLY SIGNED> By: Ly Junior MD 10/15/17 0912 [id number] Junior MD /nt
[2017-10-15 10:24] LABS: IgA 166 mg/dL (64-422); IgG 1276 mg/dL (700-1600); IgM 77 mg/dL (26-217)
--- NOTE | 2017-10-15 22:55 | CON ---
[address] [address] CONSULTATION Name: TAVIA AMADOR Room: [address] IN M.R.#: [id number] Admission: 10/11/17 Attend Phys: Lauren Childers Discharge: 10/15/17 Date of : 37 Report #: [id number] THIS REPORT FOR: //name// CC: Ines Luque DATE OF SERVICE: 10/14/2017 REASON FOR CONSULTATION: Thrombocytopenia. SUBJECTIVE: This is an 81-year-old female who had a fall at home and was found to have a left hip fracture. She did not have any lightheadedness or seizure-like activity. However, after she was admitted she became less responsive and was transferred to the telemetry. She became more lethargic and was found to have urosepsis. Initial evaluation including ultrasound of her kidneys showed marked abnormal thickening; however, there was a small amount of sludge without any evidence of pericholecystic fluid. The patient was taken to surgery yesterday. I was not able to see since she was in surgery; however, she underwent a closed subcapital left femoral neck fixation. Today, she is still mildly sedated due to pain medications. I discussed with the nursing staff. Her blood pressure has been elevated. A consultation was requested since she dropped her platelets. On 10/12, it was 160; however, later on yesterday it dropped to 80 and today it is 84. Her hemoglobin has been intact; however, it dropped in the last 3 days around 3 grams from 15.6 to 12.4. PT was 12.2 and PTT 29.1. INR is 1.3. Per the nursing staff, there is no bleeding reported. She received Zosyn and also heparin on 10/13. REVIEW OF SYSTEMS: Unable to obtain a full review of system since she was a little bit sedated. PAST MEDICAL HISTORY: Left hip fracture, GERD and hypertension. The patient had previous breast cancer in 2001, status post left mastectomy. PAST SURGICAL HISTORY: Tonsillectomy and appendectomy. FAMILY HISTORY: Noncontributory. SOCIAL HISTORY: No smoking. No alcohol abuse or drug abuse. ALLERGIES: SHE IS ALLERGIC TO DEMEROL AND CELEBREX. PHYSICAL EXAMINATION: VITAL SIGNS: Today, temperature 36.4, pulse is 91, respirations 20 and blood pressure is 125/89. SpO2 was 93% on 6 liters. GENERAL: By physical examination, the patient was minimally sedated. She [place] [address] CONSULTATION Name: TAVIA AMADOR Room: [address]#: [id number] Admission: 10/11/17 Attend Phys: Lauren Childers Discharge: 10/15/17 Date of : 37 Report #: [id number] LUNGS: However, lungs showed coarse sounds; however, they are symmetrical. HEART: Tachy, but regular. S1 and S2 within normal limits. ABDOMEN: Bowel sounds were positive. SKIN: No evidence of ecchymosis or bleeding. LABORATORY DATA: Today, WBC 15.1, hemoglobin 12.4 and platelets 84. PT was 12.2 and PTT 29.1. Creatinine is 1.0. AST is 2223 and ALT is 2384. IMAGING: Hip x-ray showed orthopedic pinning of the left femoral neck. ASSESSMENT AND PLAN: An 81-year-old female who was admitted because of left hip fracture and infection. She underwent pinning of the left femur neck. She had acute drop in her platelet count after her admission. Most likely this is due to consumptive process after the fracture and the orthopedic surgery. Other causes could be antibiotics including Zosyn, which is notorious for causing thrombocytopenia. At this point, her platelet count has been level down and it has been going up to 84. I would like to obtain workup including hemolysis with LDH, haptoglobin, we will obtain a peripheral blood smear. I do expect the platelet count will start trending up in the next 2 days. I will monitor the patient closely. <ELECTRONICALLY SIGNED> By: Cesar Aaron MD 10/15/17 2255 [id number] [id number] Aaron MD /nt
[2017-10-16 15:09] LABS: KAPPA FREE LIGHT CHAINS 32.3 mg/L (3.3-19.4); LAMBDA FREE LIGHT CHAINS 28.7 mg/L (5.7-26.3)
--- NOTE | 2017-10-28 11:57 | OP ---
[address] [address] OPERATIVE REPORT Name: TAVIA AMADOR Room: [address] IN .R.#: [id number] Admission: 10/11/17 Attend Phys: Lauren Childers Discharge: 10/15/17 Date of : 37 Report #: [id number] THIS REPORT FOR: //name// CC: Ines Luque DATE OF SERVICE: 10/13/2017 FAMILY PHYSICIAN: Dr. Luque. PREOPERATIVE DIAGNOSIS: Closed subcapital left femoral neck fracture. POSTOPERATIVE DIAGNOSIS: Closed subcapital left femoral neck fracture. PROCEDURE: Open reduction and internal fixation of left femoral neck fracture with cannulated screws. Physician directed fluoroscopy less than [address] Asif. ANESTHESIA: General. GROSS PATHOLOGY: This patient has a closed subcapital left femoral neck fracture. IMPLANTS UTILIZED: Justo cannulated screws times 3, 6.5 mm. INDICATIONS: This patient suffered the above injury. She has multiple morbidities. The family has been counseled regarding the surgery, alternatives and possible complications. DESCRIPTION OF PROCEDURE: The patient was brought to the operating room where general anesthetic was administered. She is on preoperative antibiotics. The patient was placed on the operating table. The C-arm was utilized under my control through surgery. The hip fracture was visualized and noted to be in acceptable position. A Hibiclens scrub and a ChloraPrep, prep were done to the left hip, leg. The patient was draped in a sterile manner. An incision was then made approximately 2-1/2 inches in length on the lateral aspect of the left hip. It was carried down through the skin and subcuticular material by sharp dissection. Tensor fascia marilu split in line with the incision. Vastus was elevated from the lateral aspect of the femur. Guidewires were then inserted into the femoral neck and head to the appropriate depth. They are checked intermittently through this portion of the drilling. Measurements were taken. The outer cortex was reamed. The Justo cannulated screws were then placed over the guidewire to the appropriate depth. Final C-arm visualization revealed acceptable position of the fracture site and the implant devices. The guidewires were removed. The deep tissues closed with Vicryl suture, [place] [address] OPERATIVE REPORT Name: TAVIA AMADOR Room: [address]#: [id number] Admission: 10/11/17 Attend Phys: Lauren Childers Discharge: 10/15/17 Date of : 37 Report #: [id number] subcutaneous Vicryl, ritu on the skin. Estimated blood loss approximately 15 mL. The area is anesthetized with Marcaine 0.5% plain, approximately 30 mL. Sterile dressings applied. The patient was transferred back to the ICU in guarded condition. <ELECTRONICALLY SIGNED> By: Charles Ireland DO 10/28/17 1157 1040 [id number] Asif DO /nt
== END 2017-10-15 00:33 | DRG 853 ==
LOC: M.ERS 16:30 → M.ICU 17:51 → M.TBA-ER 17:51 → M.ORTHSURG 18:36 → M.2W 10-12 05:39 → M.ICU 10-12 09:27 → M.2W 10-14 13:13
PROVIDERS: Family Medicine; Internal Medicine; Internal Medicine Pulmonary Disease; Orthopaedic Surgery; ADMIT Internal Medicine
PROC: 5A09357 Assistance with Respiratory Ventilation, Less than 24 Consecutive Hours, Continuous Positive Airway Pressure (ICD-10-PCS; principal; 2017-10-12)
PROC: 5A09357 Assistance with Respiratory Ventilation, Less than 24 Consecutive Hours, Continuous Positive Airway Pressure (ICD-10-PCS; 2017-10-13)
PROC: 5A1935Z Respiratory Ventilation, Less than 24 Consecutive Hours (ICD-10-PCS; 2017-10-13)
PROC: 4A133J1 Monitoring of Arterial Pulse, Peripheral, Percutaneous Approach (ICD-10-PCS; 2017-10-13)
PROC: 4A133B1 Monitoring of Arterial Pressure, Peripheral, Percutaneous Approach (ICD-10-PCS; 2017-10-13)
PROC: 0QS704Z Reposition Left Upper Femur with Internal Fixation Device, Open Approach (ICD-10-PCS; 2017-10-13)
PROC: 03HY32Z Insertion of Monitoring Device into Upper Artery, Percutaneous Approach (ICD-10-PCS; 2017-10-13)
PROC: 0BH17EZ Insertion of Endotracheal Airway into Trachea, Via Natural or Artificial Opening (ICD-10-PCS; 2017-10-13)
DX: A41.9 Sepsis, unspecified organism (principal); S72.012A Unspecified intracapsular fracture of left femur, initial encounter for closed fracture; J69.0 Pneumonitis due to inhalation of food and vomit; J96.01 Acute respiratory failure with hypoxia; N17.0 Acute kidney failure with tubular necrosis; I26.99 Other pulmonary embolism without acute cor pulmonale; G93.40 Encephalopathy, unspecified; S32.512A Fracture of superior rim of left pubis, initial encounter for closed fracture; N39.0 Urinary tract infection, site not specified; K21.9 Gastro-esophageal reflux disease without esophagitis; I10 Essential (primary) hypertension; E86.0 Dehydration; E87.6 Hypokalemia; K75.9 Inflammatory liver disease, unspecified; D69.6 Thrombocytopenia, unspecified; J84.10 Pulmonary fibrosis, unspecified; Z88.8 Allergy status to other drugs, medicaments and biological substances; Z85.3 Personal history of malignant neoplasm of breast; Z95.0 Presence of cardiac pacemaker; Z90.49 Acquired absence of other specified parts of digestive tract; Z90.710 Acquired absence of both cervix and uterus; Z90.12 Acquired absence of left breast and nipple; Z79.899 Other long term (current) drug therapy; W01.0XXA Fall on same level from slipping, tripping and stumbling without subsequent striking against object, initial encounter; Y93.89 Activity, other specified; Y92.090 Kitchen in other non-institutional residence as the place of occurrence of the external cause; Y99.8 Other external cause status